=== PATIENT | female | born 1970 | race Caucasian/White ===

== ENCOUNTER 2022-05-01 14:02 | Emergency (ER) | payer MEDICARE, OTHER ==
[~2022-05-01] VITALS: Ht 167.6 cm; Wt 90.7 kg
[~2022-05-01 14:02] MED LIST: ACETAMINOPHEN325 M1 PO; ACETAMINOPHEN500 M1 PO; ADVIL200 MG PO; ASPIR-LOW81 MG PO; AZITHROMYCIN500 MG PO; CALCIUM WITH M1 EACH PO; CO Q-10200 MG PO; HYCET 7.5 MG-3473 ML PO; KEFLEX500 MG PO; LIPITOR40 MG PO; MIRALAX17 GM PO; PROVENTIL HFA6.7 GM INH; ROSUVASTATIN CA20 MG PO; ZOLOFT100 MG PO
--- OUTSIDE RECORDS SUMMARY | 2022-05-01 14:10 | XMS ---
PreManage Notification: BEATA MAHER Security Pie Icer Machine Events No recent Security Events currently on file CRITERIA MET - Group Notification CARE PROVIDERS There are no care providers on record at this time. Vandana has no Care Guidelines for this patient. Flavia VISIT COUNT (12 MO.) 1 [facility] TOTAL 1 NOTE: Visits indicate total known visits. ED/C VISIT TRACKING (12 MO.) 05/01/2022 14:03 [facility] [place] TYPE: Emergency COMPLAINT: - LOWER BACK PAIN INPATIENT VISIT TRACKING (12 MO.) No inpatient visits to display in this time frame [id number]
[2022-05-01] MEDS ORDERED: LIDODERM1 EACH TOP (14:59)
== END 2022-05-01 15:21 | disposition home or self-care (01) ==
LOC: ED 14:02
DX: M54.50 Low back pain, unspecified (principal); Z86.73 Personal history of transient ischemic attack (TIA), and cerebral infarction without residual deficits; Z87.891 Personal history of nicotine dependence; Z88.1 Allergy status to other antibiotic agents; Z88.8 Allergy status to other drugs, medicaments and biological substances; Z79.899 Other long term (current) drug therapy
CPT/HCPCS: 99283; A9270

== ENCOUNTER 2022-11-13 13:19 | Emergency (ER) | payer MEDICARE, OTHER ==
[~2022-11-13] VITALS: Ht 167.6 cm; Wt 90.7 kg
[~2022-11-13 13:19] MED LIST changes: +ASPIRIN81 MG PO; +LIDODERM1 EACH TOP; +LOSARTAN POTASS25 MG PO; +SERTRALINE HCL100 MG PO
--- OUTSIDE RECORDS SUMMARY | 2022-11-13 13:27 | XMS ---
PreManage Notification: BEATA MAHER Security Surgical Technologist Events No recent Security Events currently on file CRITERIA MET - Group Notification - [facility] - 2 Visits in 30 Days CARE PROVIDERS -Diana- Dentist: Housetrailer Servicer [facility] PHONE: [phone] Vandana has no Care Guidelines for this patient. Flavia VISIT COUNT (12 MO.) 3 [facility] TOTAL 3 NOTE: Visits indicate total known visits. ED/UCC VISIT TRACKING (12 MO.) 11/13/2022 13:20 [facility] [place] TYPE: Emergency COMPLAINT: - NOSE BLEED 11/04/2022 16:43 [facility] [place] TYPE: Emergency COMPLAINT: - STROKE SYMPTOMS DIAGNOSES: - Heart failure, unspecified - Other predatory animal exterminator (current) drug therapy - Allergy status to other antibiotic agents - Personal history of nicotine dependence - Contact with and (suspected) exposure to COVID-19 - Transient cerebral ischemic attack, unspecified - Facial weakness - Allergy status to other drugs, medicaments and biological substances 05/01/2022 14:03 [facility] [place] TYPE: Emergency COMPLAINT: - LOWER BACK PAIN DIAGNOSES: - Other chcf (current) drug therapy - Low back pain, unspecified - Allergy status to other antibiotic agents - Personal history of nicotine dependence - Personal history of transient ischemic attack (TIA), and cerebral infarction without residual deficits - Allergy status to other drugs, medicaments and biological substances INPATIENT VISIT TRACKING (12 MO.) 11/05/2022 01:51 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
[2022-11-13] MEDS ORDERED: SPIRONOLACTONE25 MG PO (13:46)
[2022-11-13] MEDS ORDERED: ENTRESTO 24 MG1 EACH PO (13:46)
[2022-11-13] MEDS ORDERED: ATORVASTATIN CA40 MG PO (13:46)
[2022-11-13] MEDS ORDERED: ELIQUIS5 MG PO (13:46)
== END 2022-11-13 17:54 | disposition home or self-care (01) ==
LOC: ED 13:19
DX: R04.0 Epistaxis (principal); I50.9 Heart failure, unspecified; Z87.891 Personal history of nicotine dependence; Z88.1 Allergy status to other antibiotic agents; Z88.8 Allergy status to other drugs, medicaments and biological substances; Z79.899 Other long term (current) drug therapy
CPT/HCPCS: 99283

== ENCOUNTER 2023-01-07 01:10 | Emergency (ER) | payer MEDICARE, OTHER ==
[~2023-01-07] VITALS: Ht 167.6 cm; Wt 93.5 kg
[~2023-01-07 01:10] MED LIST changes: +ATORVASTATIN CA40 MG PO; +ELIQUIS5 MG PO; +ENTRESTO 24 MG1 EACH PO; +SPIRONOLACTONE25 MG PO
--- OUTSIDE RECORDS SUMMARY | 2023-01-07 01:14 | XMS ---
PreManage Notification: BEATA MAHER Security Agricultural Education Professor Events No recent Security Events currently on file CRITERIA MET - Group Notification CARE PROVIDERS -, Diana- Dentist: Perioperative Tech [facility] PHONE: [phone] Vandana has no Care Guidelines for this patient. ECalvin VISIT COUNT (12 MO.) 4 [facility] Hough TOTAL 4 NOTE: Visits indicate total known visits. ED/UCC VISIT TRACKING (12 MO.) 01/07/2023 01:11 [facility] [place] TYPE: Emergency COMPLAINT: - PACEMAKER ISSUES 11/13/2022 13:20 [facility] TYPE: Emergency COMPLAINT: - NOSE BLEED DIAGNOSES: - Allergy status to other antibiotic agents - Allergy status to other drugs, medicaments and biological substances - Epistaxis - Heart failure, unspecified - Other fci (current) drug therapy - Personal history of nicotine dependence 11/04/2022 16:43 [facility] TYPE: Emergency COMPLAINT: - STROKE SYMPTOMS DIAGNOSES: - Allergy status to other antibiotic agents - Allergy status to other drugs, medicaments and biological substances - Contact with and (suspected) exposure to COVID-19 - Facial weakness - Heart failure, unspecified - Other computer application developer (current) drug therapy - Personal history of nicotine dependence - Transient cerebral ischemic attack, unspecified 05/01/2022 14:03 [facility] [place] TYPE: Emergency COMPLAINT: - LOWER BACK PAIN DIAGNOSES: - Allergy status to other antibiotic agents - Allergy status to other drugs, medicaments and biological substances - Low back pain, unspecified - Other fci (current) drug therapy - Personal history of nicotine dependence - Personal history of transient ischemic attack (TIA), and cerebral infarction without residual deficits INPATIENT VISIT TRACKING (12 MO.) 11/05/2022 01:51 [facility] TYPE: Neuro Surgery DIAGNOSES: - Chronic systolic (congestive) heart failure - Hyperlipidemia, unspecified - 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
[2023-01-07] MEDS ORDERED: LOSARTAN POTASS25 MG PO (01:25)
[2023-01-07 01:32] VITALS: BP 114/68
== END 2023-01-07 01:32 | disposition home or self-care (01) ==
LOC: ED 01:10
DX: Z48.817 Encounter for surgical aftercare following surgery on the skin and subcutaneous tissue (principal); Z87.891 Personal history of nicotine dependence; Z88.1 Allergy status to other antibiotic agents; Z88.8 Allergy status to other drugs, medicaments and biological substances; Z79.899 Other long term (current) drug therapy
CPT/HCPCS: 99282